=== PATIENT | female | born 1990 | race Caucasian/White ===

== ENCOUNTER 2017-06-30 10:54 | Emergency (ER) | payer BC ==
[2017-06-30 14:21] VITALS: BP 131/79
--- NOTE | 2017-06-30 14:36 | UC ---
UC General HPI - HPI Summary HPI Summary: pt is c/o a sore throat, fatigue, headache, bodyaches for past week. she admits to cough, ear discomfort and chills but no fever. she does work in daycare - History of Current Complaint Chief Complaint: UCGeneralIllness Stated Complaint: ST,[place],EARS Time Seen by Provider: 06/30/17 14:23 Hx Obtained From: Patient Hx Last Menstrual Period: 06/16/17 Onset/Duration: Gradual Onset Timing: Constant Onset Severity: Mild Pain Intensity: 3 Associated Signs & Symptoms: Positive: Cough, Headache. Negative: Fever - Allergy/Home Medications Allergies/Adverse Reactions: Allergies Allergy/AdvReac Type Severity Reaction Status Date / Time gluten Allergy GI Upset Verified 06/30/17 14:18 lactose Allergy GI Upset Verified 06/30/17 14:18 Home Medications: Home Medications Cetirizine* [ZyrTEC 10 MG TAB*] 10 mg PO DAILY 06/30/17 [History Confirmed 06/30] PMH/Surg Hx/FS Hx/Imm Hx Previously Healthy: Yes - Surgical History Surgical History: Yes Surgery Procedure, Year, and Place: Tonsillectomy - Social History Occupation: Employed Full-time - daycare Alcohol Use: Occasionally Substance Use Type: None Smoking Status (MU): Never Smoked Tobacco Have You Smoked in the Last Year: No - Immunization History Vaccination Up to Date: Yes Review of Systems Constitutional: Fatigue Skin: Negative Eyes: Negative ENT: Sore Throat, Ear Ache Respiratory: Negative Cardiovascular: Negative Gastrointestinal: Negative Genitourinary: Negative Motor: Negative Neurovascular: Negative Musculoskeletal: Negative Neurological: Headache Psychological: Negative Is Patient Immunocompromised?: No All Other Systems Reviewed And Are Negative: Yes Physical Exam Triage Information Reviewed: Yes Appearance: Well-Appearing Vital Signs: Initial Vital Signs Temp 97.8 F 06/30/17 14:16 Pulse 72 06/30/17 14:16 Resp 16 06/30/17 14:16 BP 131/79 06/30/17 14:16 Pulse Ox 99 06/30/17 14:16 Vital Signs Reviewed: Yes Eye Exam: Normal ENT: Positive: Pharyngeal erythema, TMs normal, Uvula midline. Negative: Nasal congestion, Nasal drainage, Tonsillar swelling, Tonsillar exudate, Trismus, Muffled voice, Hoarse voice, Sinus tenderness Neck exam: Normal Respiratory: Positive: Lungs clear, Normal breath sounds, No respiratory distress Cardiovascular: Positive: RRR, No Murmur Abdomen Description: Positive: Nontender, No Organomegaly, Soft Bowel Sounds: Positive: Present Musculoskeletal Exam: Normal Neurological Exam: Normal Psychological: Positive: Age Appropriate Behavior Skin Exam: Normal Course/Dx - Course Course Of Treatment: non toxic pt with neg rapid strep and flu testing. nothing on exam to support antibiotic. tx supportive. pt advised mono still possible ; however, no rapid test for this on site. pt declined out pt labs, will f/u pcp instead. - Differential Dx - Multi-Symptom Provider Diagnoses: sore throat. general malaise. possible mono. Discharge - Discharge Plan Condition: Stable Disposition: HOME Patient Education Materials: Pharyngitis (ED), Fatigue (ED), Mononucleosis (ED) Referrals: EVER Alvarez [Primary Care Provider] - 3 Days Additional Instructions: AVOID SPORTS/INTENSE PHYSICAL ACTIVITY
== END 2017-06-30 15:33 | disposition home or self-care (01) ==
LOC: UCCORT 10:54
DX: J02.9 Acute pharyngitis, unspecified (principal); R53.81 Other malaise
CPT/HCPCS: 87502; 87651; 99211; G0463

== ENCOUNTER 2018-11-07 20:48 | Emergency (ER) | payer BC ==
[2018-11-07 21:19] VITALS: BP 148/91
--- NOTE | 2018-11-07 21:33 | UC ---
Back Pain HPI - HPI Summary HPI Summary: nausea and vomiting began today on/off diarrhea for 5 days ago with back pain - --eating and drinking ok but feels dehydrated-- - History of Current Complaint Chief Complaint: UCBackPain Stated Complaint: BACK PAIN,NAUSEA,FREQUENT URINATION Time Seen by Provider: 11/07/18 21:05 Hx Obtained From: Patient Hx Last Menstrual Period: 10/31/18 ?: No Onset/Duration: Lasting Days - 5, Still Present Pain Intensity: 7 Pain Scale Used: 0-10 Numeric Back Pain: Is Diffuse Character: Throbbing Aggravating Factor(s): Nothing Alleviating Factor(s): Nothing Associated Signs And Symptoms: Positive: Abdominal Pain - Allergies/Home Medications Allergies/Adverse Reactions: Allergies Allergy/AdvReac Type Severity Reaction Status Date / Time gluten Allergy GI Upset Verified 06/30/17 14:18 lactose Allergy GI Upset Verified 06/30/17 14:18 Home Medications: Home Medications NK [No Home Medications Reported] 11/07/18 [History Confirmed 11/07/18] PMH/Surg Hx/FS Hx/Imm Hx Previously Healthy: Yes - Surgical History Surgical History: Yes Surgery Procedure, Year, and Place: Tonsillectomy - Family History Family History: renal colic - Social History Occupation: Employed Full-time Lives: With Family Alcohol Use: Occasionally Substance Use Type: None Smoking Status (MU): Never Smoked Tobacco Have You Smoked in the Last Year: No - Immunization History Vaccination Up to Date: Yes Review of Systems All Other Systems Reviewed And Are Negative: Yes Constitutional: Positive: Negative Skin: Positive: Negative Eyes: Positive: Negative ENT: Positive: Negative Respiratory: Positive: Negative Cardiovascular: Positive: Negative Gastrointestinal: Positive: Abdominal Pain, Vomiting, Diarrhea Motor: Positive: Negative Neurovascular: Positive: Negative Musculoskeletal: Positive: Arthralgia - low back pain Neurological: Positive: Negative Psychological: Positive: Negative Is Patient Immunocompromised?: No Physical Exam Triage Information Reviewed: Yes Appearance: Well-Nourished, Ill-Appearing - mild, Pain Distress - mild Vital Signs: Initial Vital Signs Temp 98.1 F 11/07/18 21:11 Pulse 90 11/07/18 21:11 Resp 16 11/07/18 21:11 BP 148/91 11/07/18 21:11 Pulse Ox 99 11/07/18 21:11 Vital Signs Reviewed: Yes Eye Exam: Normal Eyes: Positive: Conjunctiva Clear ENT Exam: Normal ENT: Positive: Normal ENT inspection, Hearing grossly normal. Negative: Trismus , Muffled voice, Hoarse voice Neck exam: Normal Neck: Positive: Supple, Nontender Respiratory Exam: Normal Respiratory: Positive: Chest non-tender, Lungs clear, Normal breath sounds, No respiratory distress, No accessory muscle use Cardiovascular Exam: Normal Cardiovascular: Positive: RRR, No Murmur, Pulses Normal, Brisk Capillary Refill Abdomen Description: Positive: Nontender - l.r, Soft. Negative: No Organomegaly , McBurney's Point Tenderness Bowel Sounds: Positive: Present Musculoskeletal Exam: Normal Musculoskeletal: Positive: Strength Intact, ROM Intact, No Edema Neurological Exam: Normal Neurological: Positive: Alert, Muscle Tone Normal Psychological Exam: Normal Skin Exam: Normal Diagnostics - Radiology No standard instances Radiology Interpretation Completed By: Radiologist - Ct without--no evidence acute pathology Re-Evaluation - Re-Evaluation First Eval Re-Evaluation Time: 22:50 Change: Unchanged - upon return from CT patient --vomited---zofran given Back Pain Course/Dx - Course Course Of Treatment: patient will be d/c to rest and advance diet slowly, if pain worsen or fails to resolve patient to go to ED--otherwise follow with pcp 1 days - Differential Dx/Diagnosis Provider Diagnosis: Pain in the abdomen, Hematuria Discharge - Sign-Out/Discharge Documenting (check all that apply): Patient Departure All imaging exams completed and their final reports reviewed: Yes - Discharge Plan Condition: Stable Disposition: HOME Patient Education Materials: Acute Nausea and Vomiting (ED), Acute Diarrhea (ED ), Hematuria (ED), Nutrition Tips for Relief of Diarrhea (ED) Referrals: Sandhya Velasquez [Primary Care Provider] - 1 Day Additional Instructions: to ED if symptoms worsen or fail to improve - Billing Disposition and Condition Condition: STABLE Disposition: Home
[2018-11-07] MEDS ORDERED: Ondansetron ODT TAB* 4 MG PO ONE (21:51)
[2018-11-07] MEDS ORDERED: Ondansetron ODT TAB* 4 MG ONE (21:57)
== END 2018-11-07 23:19 | disposition home or self-care (01) ==
LOC: UCCORT 20:48
DX: R10.9 Unspecified abdominal pain (principal); R31.9 Hematuria, unspecified
CPT/HCPCS: 74176; 81003; 84702; 99212; A9270-GY; G0463

== ENCOUNTER 2022-06-23 08:13 | Inpatient (IN) ==
[2022-06-23] MEDS ORDERED: Buffered Lidocaine 1% SYRIN 1 ml INTRADERM ONE (08:51)
[2022-06-23] MEDS ORDERED: Lactated Ringers 1000 ml BAG 1,000 ML IV ONE (08:51)
[2022-06-23 10:09] LABS: ABS Basophils 0.1 10^3/ul (0-0.2); ABS Eosinophils 0.1 10^3/ul (0-0.6); ABS Monocytes 0.9 10^3/ul (0-0.8); ABS Neutrophils 8.6 10^3/ul (1.5-7.7); Eosinophil % 1.2 %; Hematocrit 41 % (35-47); Hemoglobin 13.7 g/dL (12.0-16.0); Lymphocyte % 17.3 %; Mean Corpuscular HGB Conc 33 g/dL (31-36); Mean Corpuscular Hemoglobin 30 pg (27-31); Mean Corpuscular Volume 90 fL (80-97); Mean Platelet Volume 8.7 fL (7.4-10.4); Nucleated Red Blood Cells % 0.1; Platelet Count 218 10^3/uL (150-450); Red Cell Distribution Width 14 % (10-15); White Blood Count 11.7 10^3/uL (3.5-10.8)
[2022-06-23 10:17] LABS: Urine Appearance Cloudy; Urine Bilirubin Negative (Negative); Urine Blood 3+ (Negative); Urine Color Straw; Urine Glucose Negative (Negative); Urine Ketones Negative (Negative); Urine Nitrite Negative (Negative); Urine Protein Negative (Negative); Urine Specific Gravity 1.005 (1.002-1.030); Urine Urobilinogen Negative (Negative)
[2022-06-23 10:19] LABS: Urine Bacteria 1+ (Absent); Urine Red Blood Cell 2+(6-10/hpf) (Absent); Urine Squamous Epithelial Cell Present (Absent); Urine White Blood Cell Trace(0-5/hpf) (Absent)
[2022-06-23 10:41] LABS: Urine Benzodiazepine Screen None Detected (None Detect); Urine Cannabinoids Screen None Detected (None Detect); Urine Opiates Screen None Detected (None Detect)
[2022-06-23 10:45] LABS: ALT 26 U/L (7-52); Albumin 3.9 g/dL (3.2-5.2); Albumin/Globulin Ratio 1.3 (1-3); Alkaline Phosphatase 102 U/L (35-149); Blood Urea Nitrogen 9 mg/dL (6-24); CO2 Carbon Dioxide 22 mmol/L (22-32); Calcium 9.2 mg/dL (8.6-10.3); Chloride 106 mmol/L (101-111); Creatinine, Serum 0.58 mg/dL (0.51-0.95); Globulin 2.9 g/dL (2-4); Glucose 93 mg/dL (70-100); Sodium 136 mmol/L (135-145); Total Protein 6.8 g/dL (6.4-8.9); Uric Acid 4.5 mg/dL (2.3-6.6); eGFR CKD-EPI 124.8 (>60)
[2022-06-23 10:55] LABS: Anion Gap 8 mmol/L (2-11)
[2022-06-23 12:52] LABS: Potassium Redraw 3.7 mmol/L (3.5-5.0)
[2022-06-23] MEDS ORDERED: Ondansetron 4 mg VIAL 2 MG/ML 2 ml VIAL IV PRN (18:16)
[2022-06-23] MEDS ORDERED: Oxytocin in LR 20,000 MILLI.UNIT/1,000 ML BAG IV ONE (20:03)
[2022-06-23] MEDS ORDERED: Witch Hazel PAD JAR TOPICAL PRN (20:43)
[2022-06-23] MEDS ORDERED: Dibucaine 1% OINT 28.35 GM TUBE PR PRN (20:43)
[2022-06-23] MEDS ORDERED: Oxytocin in LR 20,000 MILLI.UNIT/1,000 ML BAG IV SCH (20:45)
[2022-06-23] MEDS ORDERED: Lactated Ringers 1000 ml BAG 1,000 ML IV SCH (21:00)
[2022-06-24 07:10] LABS: ABS Basophils 0.1 10^3/ul (0-0.2); ABS Eosinophils 0.1 10^3/ul (0-0.6); ABS Lymphocytes 1.9 10^3/ul (1.0-4.8); ABS Neutrophils 14.6 10^3/ul (1.5-7.7); Eosinophil % 0.4 %; Hematocrit 35 % (35-47); Lymphocyte % 10.7 %; Mean Corpuscular HGB Conc 34 g/dL (31-36); Mean Corpuscular Hemoglobin 30 pg (27-31); Mean Corpuscular Volume 88 fL (80-97); Mean Platelet Volume 8.2 fL (7.4-10.4); Platelet Count 187 10^3/uL (150-450); Red Blood Count 4.02 10^6 /uL (3.70-4.87); Red Cell Distribution Width 14 % (10-15); White Blood Count 17.6 10^3/uL (3.5-10.8)
[2022-06-24] MEDS ORDERED: CMCS:LoraTADine 10 mg TAB (NF) PO PRN (09:00)
[2022-06-25 10:34] VITALS: BP 118/65
== END 2022-06-25 18:10 | disposition home or self-care (01) | DRG 560 ==
LOC: MCHOBOUT 08:13 → MCHOB 08:59
PROVIDERS: ADMIT Midwife; ATTEND Midwife